=== PATIENT | male | born 2000 | race Caucasian/White ===

== ENCOUNTER 2021-04-01 10:47 | Emergency (ER) | payer BC, OTHER ==
[~2021-04-01] VITALS: Ht 182 cm; Wt 94.0 kg
[2021-04-01] MEDS ORDERED: NS IV 1000 ML 1,000 ML ONE (10:56)
[2021-04-01] MEDS ORDERED: LACTATED RINGERS 1,000 ML IV STA (11:03)
[2021-04-01] MEDS ORDERED: NS IV 1000 ML 1,000 ML IV STA (11:03)
[2021-04-01] MEDS ORDERED: LACTATED RINGERS 1,000 ML IV ONE (11:05)
--- NOTE | 2021-04-01 11:25 | ED General ---
General Chief Complaint: Exposure Stated Complaint: HEAT EXPOSURE; NEAR SYNCOPE; AMS Nursing Triage Note: PT WAS A [employer] AND HAD RAN ABOUT A MILE AND HALF AND FELT SICK AND WEAK AND LIKE HE WAS GOING TO PASS OUT. HE THINKS HE WAS OVERHEATED. THE OUTSIDE TEMPERATURE IS CURRENTLY 77 DEGREES. Source of Information: Patient Exam Limitations: No Limitations History of Present Illness Date Seen by Provider: Apr 01, 2021 Time Seen by Provider: 10:58 Initial Comments Here with report of feeling weak and nearly passing out after running a mile and a half. Thinks he may be dehydrated. Complains of cramps in his legs and abdomen. Arrives sweating profusely. Reports that he is thirsty. Denies diarrhea or dysuria. No other constitutional symptoms. Timing/Duration: 1/2 Hour Severity: Moderate Associated Systoms: No Chest Pain, No Cough; Diaphoresis; No Fever/Chills; Nausea/Vomiting; No Shortness of Air; Weakness Allergies and Home Medications Allergies Coded Allergies: No Known Drug Allergies (Unverified , 04/01/21) Patient Home Medication List Home Medication List Reviewed: Yes Review of Systems Review of Systems Constitutional: No chills; diaphoresis; No fever; weakness EENTM: no symptoms reported Respiratory: no symptoms reported Cardiovascular: No chest pain; syncope (Near syncope) Gastrointestinal: no symptoms reported Genitourinary: no symptoms reported Musculoskeletal: muscle pain, muscle cramps, muscle weakness Skin: see HPI Psychiatric/Neurological: No Symptoms Reported All Other Systems Reviewed Negative Unless Noted: Yes Past Oqsfkty-Akzrcf-Hadwfd Hx Patient Social History Tobacco Use?: No Use of E-Cig and/or Vaping dev: No Substance use?: No Alcohol Use?: No Pt feels they are or have been: No Immunizations Up To Date First/Initial COVID19 Vaccinat: MARCH 26, 2021 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 oz. kg; 28.00 BMI Method: General Appearance: WD/WN, Mild Distress HEENT: PERRL/EOMI, Pharynx Normal Neck: Non Tender, Supple Respiratory: Lungs Clear, Normal Breath Sounds Cardiovascular: No Murmur, Tachycardia Gastrointestinal: Non Tender, Soft Back: Normal Inspection, No CVA Tenderness, No Vertebral Tenderness Extremity: Normal Range of Motion, Non Tender Neurologic/Psychiatric: Alert, Oriented x3, No Motor/Sensory Deficits Skin: Normal Color, Damp (Sweating) Progress/Results/Core Measures Suspected Sepsis SIRS Temperature: Pulse: 98 Respiratory Rate: 18 Laboratory Tests 04/01/21 10:56: White Blood Count 20.0H Blood Pressure 112 /59 Mean: 76 Laboratory Tests 04/01/21 10:56: Creatinine 1.91H, Platelet Count 436H, Total Bilirubin 0.6 Results/Orders Lab Results Laboratory Tests Test 04/01/21 10:56 Range/Units White Blood Count 20.0 H 4.3-11.0 10^3/uL Red Blood Count 5.04 4.35-5.85 10^6/uL Hemoglobin 15.7 13.3-17.7 G/DL Hematocrit 45 40-54 % Mean Corpuscular Volume 90 80-99 FL Mean Corpuscular Hemoglobin 31 25-34 PG Mean Corpuscular Hemoglobin Concent 35 32-36 G/DL Red Cell Distribution Width 11.8 10.0-14.5 % Platelet Count 436 H 130-400 10^3/uL Mean Platelet Volume 9.2 7.4-10.4 FL Immature Granulocyte % (Auto) 8 % Neutrophils (%) (Auto) 47 42-75 % Lymphocytes (%) (Auto) 39 12-44 % Monocytes (%) (Auto) 4 0-12 % Eosinophils (%) (Auto) 2 0-10 % Basophils (%) (Auto) 1 0-10 % Neutrophils # (Auto) 9.4 H 1.8-7.8 X 10^3 Lymphocytes # (Auto) 7.7 H 1.0-4.0 X 10^3 Monocytes # (Auto) 0.7 0.0-1.0 X 10^3 Eosinophils # (Auto) 0.4 H 0.0-0.3 10^3/uL Basophils # (Auto) 0.2 H 0.0-0.1 10^3/uL Immature Granulocyte # (Auto) 1.6 H 0.0-0.1 10^3/uL Neutrophils % (Manual) 46 % Lymphocytes % (Manual) 19 % Monocytes % (Manual) 6 % Eosinophils % (Manual) 4 % Metamyelocytes % 3 % Band Neutrophils 4 % Atypical Lymphocytes 18 % Platelet Estimate INCREASED Blood Morphology Comment NORMAL Sodium Level 139 135-145 MMOL/L Potassium Level 4.7 3.6-5.0 MMOL/L Chloride Level 101 98-107 MMOL/L Carbon Dioxide Level 11 L 21-32 MMOL/L Anion Gap 27 H 5-14 MMOL/L Blood Urea Nitrogen 18 7-18 MG/DL Creatinine 1.91 H 0.60-1.30 MG/DL Estimat Glomerular Filtration Rate 45 BUN/Creatinine Ratio 9 Glucose Level 145 H 70-105 MG/DL Calcium Level 11.2 H 8.5-10.1 MG/DL Corrected Calcium 8.5-10.1 MG/DL Total Bilirubin 0.6 0.1-1.0 MG/DL Aspartate Amino Transf (AST/SGOT) 29 5-34 U/L Alanine Aminotransferase (ALT/SGPT) 19 0-55 U/L Alkaline Phosphatase 145 H 40-136 U/L Total Protein 8.3 H 6.4-8.2 GM/DL Albumin 4.9 H 3.2-4.5 GM/DL My Orders Orders - JOHN BAKER MD Ns Iv 1000 Ml (Sodium Chloride 0.9%) (04/01/21 10:56) Cbc With Automated Diff (04/01/21 11:03) Comprehensive Metabolic Panel (04/01/21 11:03) Creatine Kinase (04/01/21 11:03) Ed Iv/Invasive Line Start (04/01/21 11:03) Ns Iv 1000 Ml (Sodium Chloride 0.9%) (04/01/21 11:03) Lactated Ringers (Lr 1000 Ml Iv Solution (04/01/21 11:03) Lactated Ringers (Lr 1000 Ml Iv Solution (04/01/21 11:05) Manual Differential (04/01/21 10:56) Vital Signs/I&O 04/01/21 10:50 Temp 35.6 Pulse 98 Resp 18 B/P (MAP) 112/59 (76) Pulse Ox 96 O2 Delivery Room Air Capillary Refill : Less Than 3 Seconds Blood Pressure Mean: 76 Progress Note : Progress Note Seen and evaluated. Normal saline 1 L bolus ordered as well as labs. We will also give additional LR 1 L bolus. Patient is drinking fluids. Monitor patient. 1203: Labs consistent with heat exhaustion. He is doing way better now. He is tolerating fluids without vomiting. His online health and fitness coach is with him. We will limit activity for the next few days and he will continue hydration at home. I did discuss the elevated creatinine. Total CK is pending and is send out. That being said, patient is in much better state right now and he will continue hydration at home. I did discuss the importance of adequate hydration prior to significant physical activity. He verbalized understanding. I also discussed that history of heat injury is highly suggestive of repeat head injury so he will take appropriate precautions. Discharged home with return precautions. Patient verbalized understanding instructions and agreement with plan. Departure Impression Primary Impression: Heat exhaustion due to water depletion Qualified Codes: T67.3XXA - Heat exhaustion, anhydrotic, initial encounter Disposition: HOME, SELF-CARE Condition: Improved Departure-Patient Inst. Decision time for Depature: 12:05 Patient Instructions: Heat Exhaustion and Heat Stroke (DC) Add. Discharge Instructions: All discharge instructions reviewed with patient and/or family. Voiced understanding. It is very important that you maintain adequate hydration especially prior to significant physical activity. You may drink electrolyte-containing compounds such as Gatorade but water that down some. Should monitor urination and your urine should be light yellow or slightly mortgage loan computation clerk to ensure adequate hydration. Eat a light diet today and then return to normal diet after as tolerated. No strenuous activity for the next 2 days and you may return to normal activity as tolerated. Return for decreased urination, vomiting, weakness, breathing problems or other concerns as needed. Follow-up with your school sports trainer. Remember that history of heat injury is a significant risk factor for another heat injury. JOHN BAKER MD Apr 01, 2021 11:25
[2021-04-01 11:45] LABS: HEMATOCRIT 45 % (40-54); HEMOGLOBIN 15.7 G/DL (13.3-17.7); MEAN CORPUSCULAR HEMOGLOBIN 31 PG (25-34); MEAN CORPUSCULAR HGB CONC 35 G/DL (32-36); MEAN CORPUSCULAR VOLUME 90 FL (80-99)
[2021-04-01 11:46] LABS: BASOPHILS # (AUTO) 0.2 10^3/uL (0.0-0.1); BASOPHILS % (AUTO) 1 % (0-10); EOSINOPHILS # (AUTO) 0.4 10^3/uL (0.0-0.3); EOSINOPHILS % (AUTO) 2 % (0-10); LYMPHOCYTES # (AUTO) 7.7 X 10^3 (1.0-4.0); LYMPHOCYTES % (AUTO) 39 % (12-44); MEAN PLATELET VOLUME 9.2 FL (7.4-10.4); MONOCYTES # (AUTO) 0.7 X 10^3 (0.0-1.0); MONOCYTES % (AUTO) 4 % (0-12); NEUTROPHILS # (AUTO) 9.4 X 10^3 (1.8-7.8); NEUTROPHILS % (AUTO) 47 % (42-75); PLATELET COUNT 436 10^3/uL (130-400)
[2021-04-01 11:48] LABS: ATYPICAL LYMPHOCYTES 18 %; BAND NEUTROPHILS 4 %; EOSINOPHILS % (MANUAL) 4 %; LYMPHOCYTES % (MANUAL) 19 %; METAMYELOCYTES % 3 %; MONOCYTES % (MANUAL) 6 %; NEUTROPHILS % (MANUAL) 46 %
[2021-04-01 11:49] LABS: PLATELET ESTIMATE INCREASED; RBC MORPH NORMAL
[2021-04-01 11:52] LABS: CHLORIDE 101 MMOL/L (98-107); POTASSIUM 4.7 MMOL/L (3.6-5.0); SODIUM 139 MMOL/L (135-145)
[2021-04-01 11:53] LABS: ALANINE AMINOTRANSFERASE 19 U/L (0-55); ALBUMIN 4.9 GM/DL (3.2-4.5); ALKALINE PHOSPHATASE 145 U/L (40-136); BILIRUBIN,TOTAL 0.6 MG/DL (0.1-1.0); BUN/CREATININE RATIO 9; CALCIUM 11.2 MG/DL (8.5-10.1); CARBON DIOXIDE 11 MMOL/L (21-32); CREATININE SERUM 1.91 MG/DL (0.60-1.30); GFR ESTIMATED 45; GLUCOSE 145 MG/DL (70-105); TOTAL PROTEIN 8.3 GM/DL (6.4-8.2)
[2021-04-01 12:12] VITALS: BP 126/72
[2021-04-01 14:59] LABS: CREATINE KINASE 239 U/L (30-200)
--- OUTSIDE RECORDS SUMMARY | 2021-04-04 09:07 | XMS REPORT | Clinical Summary ---
Author Author [facility] Organization [facility] Address Unknown Phone Unavailable Care Team Providers Care Barrel Assembler Name Role Phone Najma Wheeler MD PCP Allergies No Known Active Allergies Medications No known medications Active Problems Problem Noted Date Rhabdomyolysis 04/02/2021 Last Assessment & Plan: Formatting of this note might be differ ent from the original. With associated elevated LFT's and DERICK. Exercise induced, non-traumatic. Denies creatine supplements or drug use. Plan: - Aggressive IVF support - Monitor UOP, lytes, renal function an d LFT's - Monitor on tele - May need bicarbonate IV Elevated LFTs 04/02/2021 Last Assessment & Plan: Formatting of this note might be differ ent from the original. Trend lft's IVF support Syncope and collapse 04/02/2021 Last Assessment & Plan: Formatting of this note might be differ ent from the original. Occurred with exercise. Unclear etiology. Need to r/o HOCM and Myocarditis associ ated with Covid vaccination. (1st dose of Moderna was 03/22/21). Plan: - echo in a.m. - cardiology consult - serial troponin, monitor on Tele - IVF support Resolved Problems Problem Noted Date Resolved Date DERICK (acute kidney injury) 04/02/2021 04/04/2021 Last Assessment & Plan: Formatting of this note might be differ ent from the original. Secondary to rhabdomyolysis - monitor uop - renal u/s in a.m. - IVF support Encounters Care Team Description Date Type Specialty Danni Krishnamurthy RN Syncope, unspecified syncope type (Prima ry Dx) 04/04/2021 Orders Only Cardiology Hospitalist, Physician Annie Renee MD 04/02/2021 Hospital Encounter from Last 3 Months Family History Medical History Relation Name Comments Heart attack Father PCI X 1 stent Hyperlipidemia Father Hypertension Father Relation Name Status Comments Father Alive Mother Alive Social History Date Tobacco Use Types Packs/Day Years Used Never Smoker Smokeless Tobacco: Never Used Comments Alcohol Use Standard Drinks/Week Never 0 (1 standard drink = 0.6 o z pure alcohol) Alcohol Habits Answer Date Recorded How often do you have a drink containing alcohol? Never 04/02/2021 How many drinks containing alcohol do you have on No t asked a typical day when you are drinking? How often do you have six or more drinks on one Not asked occasion? Sex Assigned at Date Recorded Not on file Last Filed Vital Signs Reading Time Taken Comments Vital Sign 121/71 04/04/2021 7:48 AM CDT Blood Pressure 65 04/04/2021 7:48 AM CDT Pulse 37.1 C (98.7 F) 04/04/2021 7:45 AM CDT Temperature 18 04/04/2021 7:45 AM CDT Respiratory Rate 99% 04/04/2021 7:45 AM CDT Oxygen Saturation - - Inhaled Oxygen Concentration 99.7 kg (219 lb 12.8 oz) 04/04/2021 6:05 AM CDT Weight 182.9 cm (6') 04/02/2021 8:53 PM CDT Height 29.81 04/02/2021 8:53 PM CDT Body Mass Index Plan of Treatment Health Maintenance Due Date Last Done Comments Td/Tdap# 2000 Pneumococcal Vaccine: 2007 03/01/2002, Pediatrics (0 to 5 Years) 2001, and At-Risk Patients (6 2001, to 64 Years) (1 of 4 - Additional PCV13) history exists HPV Vaccine (1 - Male 02/12/2012 2-dose series) COVID-19 Vaccine (2 - 04/19/2021 03/22/2021 Moderna 2-dose series) Influenza Vaccine (#1) 2021 MCV4 Vaccine Aged Out No longer eligible based on patient's age to complete this topic Procedures * The patient is currently admitted. The information in this section might not be complete until the patient is discharged. Comments Procedure Name Priority Date/Time Associated Diag nosis C-REACTIVE PROTEIN Routine 04/04/2021 4:10 AM CDT CREATINE KINASE Routine 04/04/2021 4:10 AM CDT COMPREHENSIVE METABOLIC Routine 04/04/2021 PANEL 4:10 AM CDT COMPLETE BLOOD COUNT Routine 04/04/2021 4:10 AM CDT US RENAL Routine 04/03/2021 4:58 PM CDT ECHO COMPLETE W DOPPLER Routine 04/03/2021 AND COLOR FLOW 2:36 PM CDT ECG Routine 04/03/2021 9:02 AM CDT MAGNESIUM Routine 04/03/2021 4:13 AM CDT COMPREHENSIVE METABOLIC Routine 04/03/2021 PANEL 4:13 AM CDT TROPONIN Timed 04/03/2021 4:13 AM CDT URINALYSIS MICROSCOPIC Routine 04/02/2021 ONLY 11:42 PM CDT URINALYSIS REFLEX Routine 04/02/2021 11:42 PM CDT TROPONIN Timed 04/02/2021 11:42 PM CDT COVID PCR - RAPID Routine 04/02/2021 10:02 PM CDT CREATINE KINASE Routine 04/02/2021 9:31 PM CDT PROTIME/INR - COMMUNITY Routine 04/02/2021 HOSPITALS 9:31 PM CDT TROPONIN STAT 04/02/2021 9:31 PM CDT MAGNESIUM Routine 04/02/2021 9:31 PM CDT COMPREHENSIVE METABOLIC Routine 04/02/2021 PANEL 9:31 PM CDT CBC AND DIFF (MANUAL DIFF Routine 04/02/2021 IF NECESSARY) 9:31 PM CDT from Last 3 Months Results * Creatine Kinase (04/04/2021 4:10 AM CDT) Only the most recent of 2 results within the time period is included. Pathologist [facility] Creatine Kinase 1,221 IU/L [facility] Comment: Hospital Lab White Female: 30 - 160 IU/L Black Female: 30 - 430 IU/L White Male: 40 - 425 IU/L Black Male: 50 - 850 IU/L Specimen Blood Performing Organization Address City/[facility] P shanika Number [address] [address] LABORATORIES [facility] [address] [place] [address] * C-Reactive Protein (04/04/2021 4:10 AM CDT) [facility] C Reactive 21.0 (H)Comment: Infection or 0.0 - 10.0 mg/L [facility] Protein Inflammation >10.0 mg/L Hospital Lab Specimen Blood Performing Organization Address City/[facility] P shanika Number [address] [address] LABORATORIES [facility] [address] [place] [address] * Comprehensive Metabolic Panel - CH (04/04/2021 4:10 AM CDT) Only the most recent of 3 results within the time period is included. Pathologist [facility] Sodium 143 133 - 147 mmol/L [facility] Potassium 4.1 3.5 - 5.5 mmol/L [facility] Chloride 113 (H) 98 - 110 mmol/L [facility] Carbon Dioxide 26 20 - 32 mmol/L [facility] Anion Gap 4 (L) 5 - 17 [facility] Calcium 9.5 8.4 - 10.5 mg/dL [facility] Glucose 119 (H) 65 - 99 mg/dL [facility] Protein Total 5.9 (L) 6.0 - 8.3 g/dL [facility] Serum [facility] at [facility] Albumin 3.3 (L) 3.5 - 5.0 g/dL [facility] Alkaline 96 38 - 126 u/L [facility] Phosphatase [facility] Alanine 420 (H) 11 - 58 u/L [facility] at [facility] Aspartate 126 (H) 17 - 59 u/L [facility] at [facility] Bilirubin Total 0.7 0.1 - 1.2 mg/dL [facility] Blood Urea 15 8 - 26 mg/dL [facility] Creatinine 1.6 (H) 0.8 - 1.5 mg/dL [facility] eGFR Male AA 67 60 - 200 [facility] mL/min/1.73sq [facility] at [facility] eGFR Male 55 (L) 60 - 200 [facility] Non-AA mL/min/1.73sq [facility] at [facility] Specimen Blood Performing Organization Address City/[facility]/ZIP [facility] P shanika Number [facility] [address] [facility] [address] HOSPITAL LAB - [facility] [address] [place], [place] [address] [place] [address] * Complete Blood Count - (04/04/2021 4:10 AM CDT) WBC 7.20 4.00 - 11.00 TH/uL [facility] at [facility] RBC 3.91 (L) 4.31 - 5.84 MIL/uL [facility] Hemoglobin 12.1 (L) 13.0 - 17.0 g/dL [facility] Hematocrit 35 (L) 40 - 50 % [facility] MCV 89 80.0 - 99.0 fL [facility] MCH 31 27.0 - 34.0 pg [facility] MCHC 35 32 - 36 % [facility] RDW 11.8 11.5 - 14.5 % [facility] Platelet Count 224 140 - 400 TH/uL [facility] MPV 8.3 (L) 9.4 - 12.3 fL [facility] Specimen Blood Performing Organization Address [facility]/ZIP [facility] P shanika Number [facility] [address] [facility] [address] [address] HOSPITAL LAB - [facility] at [address] [place] [address] [facility] * US Renal complete (04/03/2021 4:58 PM CDT) Specimen Impressions Performed At . Normal renal sonogram with screening pulsed Dopp ler. WHITE Narrative Performed At Patient: JEANINEWill DAMIEN WHITE Sex#: M #: [id number] Carmen# : [id number] Location: [facility] 07-01 Ordering Provider: FLORENCIA FONSECA Procedure Requested: [id number] US RENAL COMPLETE Exam Ordered: 04/03/2021 030 0 Exam Date/Time: 04/03/2021 1658 Begin exam date/time: 04/03/2021 1548 EXAM: US RENAL COMPLETE. INDICATION: Acute kidney insufficiency. Increased creatinine. Decreased GFR. Hematuria. Elevated white blood ce ll count.. COMPARISON: None. TECHNIQUE: Longitudinal and transverse images of the kidneys are patent with pulsed Doppler color and spectral tracings. FINDINGS: Right kidney measures 13.6 cm. Left kid tiffany measures 13.9 cm. Normal echogenicity without focal mass or calc ification. No hydronephrosis. Other: Bladder volume is 143 cc. No breann e fluid. Spleen measures 13 cm and is normal echogenicity and contour. Doppler/vascular findings: * Aorta/IVC: Aorta, 1.9 cm and IVC ar e normal course, caliber and echogenicity. * Renal: Flow throughout both kidneys seen with patent renal arteries and veins. * Bilateral ureteral jets are seen. Procedure Note Interface, Rad Results In - 04/03/2021 5:22 PM CDT Patient: DAMIEN VÁZQUEZ Sex#: Steven #: [id number] Carmen#: [id number] Location: [facility] 07-01 Ordering Provider: FLORENCIA FONSECA Procedure Requested: [id number] US RENAL COMPLETE Exam Ordered: 04/03/2021 0300 Exam Date/Time: 04/03/20211657 Begin exam date/time: 04/03/2021 1548 EXAM: US RENAL COMPLETE. INDICATION: Acute kidney insufficiency. Increased creatinine. Decreased GFR. Hematuria. Elevated white blood cell count.. COMPARISON: None. TECHNIQUE: Longitudinal and transverse images of the kidneys are patent with pulsed Doppler color and spectral tracings. FINDINGS: Right kidney measures 13.6 cm. Left kidney measures 13.9 cm. Normal echogenicity without focal mass or calcification. No hydronephrosis. Other: Bladder volume is 143 cc. No free fluid. Spleen measures 13 cm and is normal echogenicity and contour. Doppler/vascular findings: * Aorta/IVC: Aorta, 1.9 cm and IVC are normal course, caliber and echogenicity. * Renal: Flow throughout both kidneys seen with patent renal arteries and veins. * Bilateral ureteral jets are seen. IMPRESSION 1. Normal renal sonogram with screening pulsed Doppler. Performing Organization Address City/State/ZIP Code P shanika Number [facility] * Echo Complete with Doppler and Color Flow (04/03/2021 2:36 PM CDT) Ejection 60 % [facility] Fraction Specimen Impressions Performed At 1. Normal left ventricular systolic function, with an estimated ejection PROSOLV fraction of 60%. 2. Normal right ventricular size and systolic function. 3. No significant valvular abnormalit ies. 4. The origins of the right and left coronary arteries are suboptimally visualized. Torrie Son M.D. (Electronically Signed) Final Date: 03 April 2021 15:13 Narrative Performed At [facility] ECHOCARDIOGRAM REPORT [facility] Name: DAMIEN VÁZQUEZ Date: 04/03/2021 14:06 Chart #: [id number] : 2000 Location: [facility] Sono: juliin Age: 21 Gender: M Referring: FLORENCIA FOSNECA MD Room #: IP-11 Fellow: Indication:syncope Procedure: ECHO COMPLETE W DOPPLER AN D COLOR FLOW BP: 117 / 58 HR: 55 Ht: 72 Wt: 211 BSA 2.2 : 2D ECHO MEASUREMENTS LV Diastolic Diameter Bas 5.1 cm LVPW Diastolic Thickness 0.9 cm LV Systolic Diameter Base 3.1 cm Aorta at Sinuses Diameter 3 cm LA Systolic Diameter LX 3.3 cm Ascending Aorta Diameter 2.4 cm IVS Diastolic Thickness 0.9 cm WALL SEGMENT ANALYSIS: ROUTINE LVSI : 1 %FM : 100 LAD : 1 LCX : 1 RCA : 1 FINDINGS LV Ejection Fraction: 60 Normal left ventricular systolic func tion, with an estimated ejection fraction of 60%. Normal wall thickness. Normal wall motion. Normal left ventricular dimensions. Normal right ventricular size and sys tolic function. Normal right and left atrial size. Normal diastolic function. Normal aortic valve without regurgita tion. Normal mitral valve without regurgita tion. Normal pulmonic valve without regurgi tation. Normal tricuspid valve without regurg itation. Unable to accurately estimate pulmonary artery pressure. No pericardial effusion. IVC is responsive to inspiration leana cating normal RA pressure. Normal dimensions of the ascending ao rta. No intracardiac masses or thrombi. The right and left coronary arteries are suboptimally seen. Procedure Note Interface, External Ris In - 04/03/2021 3:13 PM CDT ECHOCARDIOGRAM REPORT [facility] Name: DAMIEN VÁZQUEZ Date: 04/03/2021 14:06 Chart #: [id number] : 2000 Location: [facility] Sono: aden Age: 21 Gender: M Referring: FLORENCIA FONSECA MD Room #: IP-11 Fellow: Indication:syncope Procedure: ECHO COMPLETE W DOPPLER AND COLOR FLOW BP: 117 / 58 HR: 55 Ht: 72 Wt: 211 BSA 2.2 : 2D ECHO MEASUREMENTS LV Diastolic Diameter Bas 5.1 cm LVPW Diastolic Thickness 0.9 cm LV Systolic Diameter Base 3.1 cm Aorta at Sinuses Diameter 3 cm LA Systolic Diameter LX 3.3 cm Ascending Aorta Diameter 2.4 cm IVS Diastolic Thickness 0.9 cm WALL SEGMENT ANALYSIS: ROUTINE LVSI : 1 %FM : 100 LAD : 1 LCX : 1 RCA : 1 FINDINGS LV Ejection Fraction: 60 Normal left ventricular systolic function, with an estimated ejection fraction of 60%. Normal wall thickness. Normal wall motion. Normal left ventricular dimensions. Normal right ventricular size and systolic function. Normal right and left atrial size. Normal diastolic function. Normal aortic valve without regurgitation. Normal mitral valve without regurgitation. Normal pulmonic valve without regurgitation. Normal tricuspid valve without regurgitation. Unable to accurately estimate pulmonary artery pressure. No pericardial effusion. IVC is responsive to inspiration indicating normal RA pressure. Normal dimensions of the ascending aorta. No intracardiac masses or thrombi. The right and left coronary arteries are suboptimally seen. IMPRESSION 1. Normal left ventricular systolic function, with an estimated ejection fraction of 60%. 2. Normal right ventricular size and systolic function. 3. No significant valvular abnormalities. 4. The origins of the right and left coronary arteries are suboptimally visualized. Torrie Son M.D. (Electronically Signed) Final Date: 03 April 2021 15:13 Performing Organization Address City/[facility] P shanika Number [facility] * Electrocardiogram without magnet (04/03/2021 9:02 AM CDT) Narrative Performed At This result has an attachment that is n ot available. Performing Organization Address City/State/[facility] Code P shanika Number [email or web address] * Troponin - 3 and 6 hr (04/03/2021 4:13 AM CDT) Only the most recent of 3 results within the time period is included. [facility] Troponin 0.00 0.00 - 0.03 ng/mL [facility] at [facility] Specimen Blood Performing Organization Address City/[facility]/ZIP Code P shanika Number [facility] [address] [address] [facility] [address] HOSPITAL LAB - [facility] at [address] [place] [address] [facility] * Magnesium - CH (04/03/2021 4:13 AM CDT) Only the most recent of 2 results within the time period is included. [facility] Magnesium 2.3 1.4 - 2.7 mg/dL [facility] Specimen Blood Performing Organization Address [facility] Code P shanika Number [address] [address] LABORATORIES [facility] [address] [place] [address] * Urinalysis Microscopic Only (04/02/2021 11:42 PM CDT) [facility] Microscopic RBC 0-5 0 - 5 /hpf [facility] Microscopic WBC 0-5 0 - 5 /hpf [facility] Epithelial Absent Absent [facility] Hyaline Cast Absent Absent [facility] Bacteria Absent Absent [facility] Specimen Clean Voided Urine Performing Organization Address City/[facility] Code P shanika Number [facility] [address] [place] [address] LABORATORIES [facility] [address] [place] [address] * Urinalysis Reflex - CH (04/02/2021 11:42 PM CDT) [facility] Appearance, Yellow [facility] Urine [facility] at [facility] Glucose Urine Negative Negative mg/dL [facility] Bilirubin Urine Negative Negative [facility] Ketones Urine Negative Negative mg/dL [facility] Specific 1.015 1.001 - 1.030 [facility] Hemoglobin Small (A) Negative [facility] at [facility] PH Urine 5.5 5.0 - 8.0 [facility] Protein Urine Negative Negative mg/dL [facility] Urobilinogen Negative Negative EU/dL [facility] Urine [facility] Nitrite Urine Negative Negative [facility] Leukocyte Negative Negative [facility] Esterase [facility] at [facility] Specimen Clean Voided Urine Performing Organization Address [facility]/ZIP Code P shanika Number [facility] [address] [facility] [address] HOSPITAL LAB - [facility] at [address] [place] [address] * COVID PCR - Rapid - CH (04/02/2021 10:02 PM CDT) [facility] SARS-CoV-2 PCR NegativeComment: This RT-PCR Negative C ommunity test has been authorized by Hospital at the [facility] under an Emergency Use Legends Authorization (EUA) for use by authorized laboratories. Specimen NASOPHARYNGEAL SWAB Performing Organization Address City/[facility] P shanika Number [facility] [address] [facility] [address] HOSPITAL LAB - [facility] at [address] * Protime/INR - CH (04/02/2021 9:31 PM CDT) [facility] INR 1.4 (H) 0.7 - 1.2 [facility] at [facility] Specimen Blood Performing Organization Address City/[facility] P shanika Number [facility] [address] [facility] [address] HOSPITAL LAB - [facility] at [address] [place] [address] Mike * CBC and Diff - CH (04/02/2021 9:31 PM CDT) Pathologist [facility] WBC 12.40 (H) 4.00 - 11.00 TH/uL [facility] at [facility] RBC 4.60 4.31 - 5.84 MIL/uL [facility] at [facility] Hemoglobin 14.2 13.0 - 17.0 g/dL [facility] at [facility] Hematocrit 41 40 - 50 % [facility] at [facility] MCV 89 80.0 - 99.0 fL [facility] at [facility] MCH 31 27.0 - 34.0 pg [facility] MCHC 35 32 - 36 % [facility] RDW 12.1 11.5 - 14.5 % [facility] at [facility] Platelet Count 253 140 - 400 TH/uL [facility] at [facility] MPV 8.6 (L) 9.4 - 12.3 fL [facility] at [facility] %Lymphocytes 12 (L) 15 - 47 % [facility] % Monocytes 6Comment: The %Monos may 0 - 12 % Commu nity include Monocytes, Hospital at Eosinophils, Basophils, Blasts Legends and other immature white cells. % Neutrophils 81 (H) 45 - 78 % [facility] # Lymphocytes 1.50 1.00 - 3.30 TH/uL [facility] at [facility] # Monocytes 0.80 0.20 - 0.90 TH/uL [facility] at [facility] # Granulocytes 10.10 (H) 1.70 - 6.80 TH/uL [facility] at [facility] Specimen Blood Performing Organization Address City/State/ZIP Code P shanika Number [facility] [address] [address] [facility] [address] HOSPITAL LAB - [facility] at [address] [place] [address] [facility] from Last 3 Months Insurance Type Payer Benefit Subscriber ID Effective Phone Address Plan / Dates Group [facility] [id number] 20 20- PREFERRED Present [employer] (Home) [place] [address] Damien Vázquez Personal/F Self [address] [place] [address] (Home) [place] [address] Advance Directives For more information, please contact: [phone] Patient Customer Service Operator Explanation Type Date Recorded Health Care Directive Date Inactivated Comments Code Status Date Activated Full Code 04/02/2021 8:52 PM
--- OUTSIDE RECORDS SUMMARY | 2021-04-04 09:07 | XMS REPORT | Encounter Summary ---
Author Author [facility] Organization [facility] Address Unknown Phone Unavailable Care Team Providers Care Glass Laminating Operator Name Role Phone Najma Wheeler MD PCP Reason for Referral * Electrophysiology (Routine) Referred By Contact Referred To Contact Status Reason Specialty Diagnoses / Procedures Isa Sweet MD [address] [facility] [address] [place] [address] [facility] Cardio Rhythm [address] [place] [address] Authorized Cardiology Diagnoses Syncope, unspecified syncope type P rocedures Cardiac Monitoring Patch (14 day) Electronically signed by Isa Sweet MD at Encounter Details Care Team Description Date Type Department Danni Krishnamurthy RN Syncope, unspecified syncope type (Prima ry Dx) 04/04/2021 Orders Only [facility] [address] [place] [address] Social History Date Tobacco Use Types Packs/Day [...] Assigned at Date Recorded Not on file documented as of this encounter Plan of Treatment Order Schedule Name Type Priority Associated Diag noses Expected: 04/04/2021, Expires: 2 Cardiac Monitoring Patch Cardiac Routine Synco pe, unspecified (14 day) Services syncope type documented as of this encounter Visit Diagnoses Diagnosis Syncope, unspecified syncope type - Temi samson documented in this encounter
--- OUTSIDE RECORDS SUMMARY | 2021-04-04 09:07 | XMS REPORT | Clinical Summary ---
Author Author [facility] Address Unknown Phone Unavailable Care Team Providers Care Button Cutting Machine Operator Name Role Phone Najma Wheeler MD PCP Source Comments Some departments are not documenting in the electronic medical record. If you d o not see the information that you expected, contact Release of Information in [facility] [place] Information Management department at [phone] for further assistan ce in locating additional records.[facility] Allergies No Known Active Allergies Medications No known medications Active Problems Not on file Surgical History Surgery Date Site/Laterality Comments HERNIA REPAIR Family History Medical History Relation Name Comments Heart problem Father Relation Name Status Comments Father Alive Mother Alive Social History Date Tobacco Use Types Packs/Day Years Used Never Smoker Smokeless Tobacco: Never Used Drinks/Week oz/Week Comments Alcohol Use Not Currently Sex Assigned at Date Recorded Male 07/30/2020 1:40 PM TIPPLE ENGINEER Last Filed Vital Signs Reading Time Taken Comments Vital Sign 128/83 09/03/2020 8:54 AM TIPPLE ENGINEER Blood Pressure 67 09/03/2020 8:54 AM TIPPLE ENGINEER Pulse 36.4 C (97.6 F) 09/03/2020 8:54 AM TIPPLE ENGINEER Temperature 16 09/03/2020 8:54 AM TIPPLE ENGINEER Respiratory Rate 100% 09/03/2020 8:54 AM TIPPLE ENGINEER Oxygen Saturation - - Inhaled Oxygen Concentration 95.3 kg (210 lb) 09/03/2020 8:54 AM TIPPLE ENGINEER Weight 182.9 cm (6') 09/03/2020 8:54 AM TIPPLE ENGINEER Height 28.48 09/03/2020 8:54 AM TIPPLE ENGINEER Body Mass Index Plan of Treatment Health Maintenance Due Date Last Done Comments HIV SCREENING 02/12/2016 DTAP/TDAP VACCINES (1 - 2019 Tdap) HEPATITIS C SCREENING 2019 PHYSICAL (COMPREHENSIVE) 2019 EXAM INFLUENZA VACCINE 05/30/2021 MENINGOCOCCAL VACCINE Aged Out 02/14/2013 No longe r eligible based on patient's age to (Oskar TAYLOR) complete this topic HPV VACCINES Completed 04/01/2018, 08/11/2017, 05/12/2017 Results Not on filefrom Last 3 Months Insurance Type Payer Benefit Subscriber ID Effective Phone Address Plan / Dates Group PPO BCBS DANY BCBS DANY [id number] 2020- PREF CARE Present BLUE AGENCY GENERIC [id number] 2020- AGENCY 2021 [phone] Damien Guevara Third Self [id number] [employer] [address] (Home) [place] [address] Liability Advance Directives Patient Director Emergency Department Explanation Type Date Recorded Advance Directive/DPOA
--- OUTSIDE RECORDS SUMMARY | 2021-04-04 09:07 | XMS REPORT | CLINICAL SUMMARY ---
Author [facility] Address [address] [place] [address] Phone Unavailable Care Team Providers Care Base Brander Name Role Phone Luz Cardona [place] Unavailable Giancarlo Taylor Unavailable *Any, Physical Therapy Unavailable Unavailable SOCIAL HISTORY Social History Observation Description Dates Observed Sex Male 2000 None recorded VITAL SIGNS BMI Body Mass Index Percentile Date Systolic Diastolic H ead Circumference Head Circumference Percentile Height Oxygen Concentration Pulse Pulse Oximeter Respiratory Rate Temperature Weight Odluay-pwy-yyesmh Percentile 28.48 kg/m2 Unknown 20210319 122 mmHg 75 mmHg Unknown Unknown 72 [ in_i] Unknown 56 /min 97 % 16 /min 97.9 210 [lb_av] Unknown ALLERGIES AND ADVERSE REACTIONS No known allergies MEDICATIONS No medication information recorded PROBLEM LIST Names Dates Status Other injury of other muscle(s) and tend on(s) at lower leg level, right leg, initial encounter 20210319 active Other injury of other muscle(s) and tend on(s) at lower leg level, left leg, initial encounter 20210319 active FAMILY HISTORY ENCOUNTERS Encounter Performer Location E/M Code E/M Label Date [facility] [address] or other outpatient visit (detailed) 20210319 Othe r injury of other muscle(s) and tendon(s) at lower leg level, right leg, initial encounter visit Luz Cardona [employer] [address] [address] Office or other outpatient visit (detailed) 20210319 Othe r injury of other muscle(s) and tendon(s) at lower leg level, left leg, initial encounter LAB RESULTS Overall Code Overall Text [Code] Res ult Type (Code) Result Text Result Value Relevant Re ference Range Date Lab Name [facility] Zip Code None recorded None recorded None recorde d None recorded None recorded None recorded None recorded None recorded None recorded None recorded None recorded None recorded INSURANCE PROVIDERS (PAYERS) Payer name Policy type / Coverag e type Policy ID Covered green party ID Insurance type Policy Bales [place]: [employer] [facility] BLUE SELECT (PPO) Unknown [id number] PRIMARY RENETTA VÁZQUEZ IMMUNIZATIONS Vaccine Notes Date Status None recorded None recorded None recorde d None recorded PROCEDURE NOTE Date Name Status Summary Text (Notes) 20210319 Splints/Casts Completed S plint/cast not applied. Reason: Splint/cast not needed Site: To an unspecified extremity. None recorded None recorded None recorded None recorded None recorded None recorded None recorded None recorded PROCEDURES Date Name Status Summary Text (Notes) 20210319 Splints/Casts Completed S plint/cast not applied. Reason: Splint/cast not needed Site: To an unspecified extremity. None recorded None recorded None recorded None recorded None recorded None recorded None recorded None recorded REASON FOR REFERRAL First Name Last Name NPI# Reason Physical Therapy *Any LABORATORY REPORT NARRATIVE NOTE No information recorded PATHOLOGY REPORT NARRATIVE NOTE No information recorded CONSULTATION NOTE First Name Last Name NPI# Reason Physical Therapy *Any IMAGING NARRATIVE Result Code Result Text Date Status Urgency Interpretation None None None None None None DISCHARGE SUMMARY NOTE * Allergies: No known allergies * Medication Current: No medication information recorded * Plan of Care (advice, pending tests, pending diagnostic tests): Treatment Type Code Text Date Observation Data Instruction [id number] Patient Education 2021-03-19 Apply ice to injured ar ea for 20 minutes every hour while awake. Never apply ice pack directly against the skin to avoid frostbite. You may use a towel, washcloth, elastic bandage, or layer of clothing to separate the ice pack from the skin. * Visit Diagnosis: Other injury of other muscle(s) and tendon(s) at lower leg l evel, right leg, initial encounter (S86.781A) Other injury of other muscle(s) and tendon(s) at lower leg level, left leg, init ial encounter (J06.132C) * Referrals: First Name Last Name NPI# Reason Physical Therapy *Any HISTORY AND PHYSICAL NOTE * Reason for Visit: Patient Reports: Pain, lower leg [Mod. Fact.: No Change Movement, Ibuprofen W orse Weight bearing; Location: Reports Lateral, Medial, Anterior; Assoc. Sx: Den ies Laceration, Abrasion, Erythema, Swelling, Contusion, Bleeding; Free text: 21 yo male presents with bilateral lower leg anterior pain. He states that it only happens when he runs. He has been running a lot playing college baseball and st ates he normally is not a runner.; Intensity: Reports Mild to Moderate; Quality: Reports Aching; Timing: Reports Intermittent, waxes and wanes, Sudden Onset; Co ntext: Reports No known injury]; Leg pain. * Family History: * * Allergies: No known allergies * Problems: Names Dates Status Other injury of other muscle(s) and tend on(s) at lower leg level, right leg, initial encounter 20210319 active Other injury of other muscle(s) and tend on(s) at lower leg level, left leg, initial encounter 20210319 active * Vitals: BMI Body Mass Index Percentile Date Systolic Diastolic Head Circumference Head Circum ference Percentile Height Oxygen Concentration Pulse Pulse Oximeter Respiratory Rate Temperature Weight Mcqgnt-cza-vnnwvn Percentile 28.48 kg/m2 Unknown 20210319 122 mmHg 75 mmHg Unknown Unknown 72 [in_i] Unknown 56 /min 97 % 16 /min 97.9 210 [lb_av] Unknown * Review of Systems: * Constitutional* Patient Denies* Chills * Fever * GI* Patient Denies* Nausea * Vomiting * Jairon/Lymph* Patient Denies* Bruising * Musc/Skel* Patient Denies* Back pain * Patient Reports* Leg pain * Patient Denies* Myalgia * Swelling * Neurologic* Patient Denies* Numbness * Skin/Breast* Patient Denies* Redness * Exam: * General : Normal* Normal : Vital signs were noted by provider,Patient noted to have a non-toxic appearance on exam,No acute distress,Physical development normal * Cardiac : Normal* Normal : Dorsalis pedis pulse is normal,Posterior Tibial pulse is normal,Peripheral edema absent,Normal capillary refill * Musculoskeletal : Abnormal* Normal : Range of motion of knees are normal,No Swelling of the knee noted on exam,No Deformity of the knee noted on exam,Normal palpation of the knee,No swelling of lower leg is noted on exam,No deformity of lower leg is noted on exam,Homans' sign negative on exam,Range of motion of ankles are normal,No Swelling of ankle noted on exam,No Deformity of ankle noted on exam,No tenderness to palption of the ankle * Abnormal : Tenderness noted to anterior aspect of lower leg bilaterally.,Tenderness noted to medial aspect of lower leg bilaterally. * Skin, Hair, Nails : Normal* Normal : Normal skin temperature upon palpation,No erythema observed,No rashes noted,No skin abrasion present,No ecchymosis observed * Neurological : Normal* Normal : Strength/motor skills are normal,Appropriate tactile sensation * Plan of Care (advice, pending tests, pending diagnostic tests): Treatment Type Code Text Date Observation Data Instruction [id number] Patien t Education 2021-03-19 Apply ice to injured area f or 20 minutes every hour while awake. Never apply ice pack directly against the skin to avoid frostbite. You may use a towel, washcloth, elastic bandage, or layer of cloth ing to separate the ice pack from the skin. * Lab Results: Overall Code Overall Text [Code] Result Type (Code) Result Text Result Value Relevant Reference Range Date Lab Name [facility] ode None recorded None recorded None recorded None recorded None recorded None recorded None recorded None recorded None recorded None recorded None recorded None recorded * Radiology Results: Overall Code Overall Text [Code] Result Type (Code) Result Text Result Value Relevant Reference Range Date Lab Name [facility] ode None recorded None recorded None recorded None recorded None recorded None recorded None recorded None recorded None recorded None recorded None recorded None recorded * Visit Diagnosis: Other injury of other muscle(s) and tendon(s) at lower leg level, right leg, initial encounter (S86.891A) Other injury of other muscle(s) and tendon(s) at lower leg level, left leg, init ial encounter (S86.892A) * Referrals: First Name Last Name NPI# Reason Physical Therapy *Any PLAN OF TREATMENT Treatment Type Code Text Date Instruction Data Instruction [id number] Kane gimenez Education 2021-03-19 Apply ice to injured area for 20 minutes every hour while awake. Never apply ice pack directly against the skin to avoid frostbite. You may use a towel, washcloth, elastic bandage, or layer of clothing to separate the ice pack from the skin. CHIEF COMPLAINT AND REASON FOR VISIT NARRATIVE Patient Reports: Pain, lower leg [Mod. Fact.: No Change Movement, Ibuprofen Worse Weight bearing; Location: Reports Lateral, Medial, Anterior; Assoc. Sx: Denies Laceration, Abrasion, Erythema, Swelling, Contusion, Bleeding; Free text: 21 yo male presents with bilateral lower leg anterior pain. He states that it only happens when he runs. He has been running a lot playing college baseball and states he normally is not a runner.; Intensity: Reports Mild to Moderate; Quality: Reports Aching; Timing: Reports Intermittent, waxes and wanes, Sudden Onset; Context: Reports No known injury]; Leg pain.
--- OUTSIDE RECORDS SUMMARY | 2021-04-04 09:07 | XMS REPORT | Encounter Summary ---
Author Author [facility] Organization [facility] Address Unknown Phone Unavailable Care Team Providers Care Chinese Instructor Name Role Phone Najma Wheeler MD PCP Reason for Visit * Reason Comments Loss of Consciousness * Auth/Cert Referred By Contact Referred To Contact Status Reason Specialty Diagnoses / Procedures Diagnoses Rhabdomyolysis Encounter Details Care Team Description Date Type Department Hospitalist, Physician Annie Renee MD [address] [place] [address] [phone] 04/02/2021 [facility] it Encounter Hospital - [facility] [address] [place] [address] Social History Date Tobacco Use Types Packs/Day [...] on file documented as of this encounter Last Filed Vital Signs Reading Time Taken [...] 04/02/2021 8:53 PM CDT Body Mass Index documented in this encounter Progress Notes * Miryam Cassidy NP - 04/03/2021 12:18 PM CDT Images from the original note were not included. [facility] Hospitalist - Progress Note Patient Name: Damien Vázquez Account No: [id number] Date of : 2000 Date of Admission: 04/02/2021 8:16 PM Subjective Follow up regarding DERICK, rhabdo, syncope, elevated LFT's Reports sore legs today but he reports could be from running this week. No furth er co today. Denies creatine supplements or illicit drug use. Awaiting echocardiogram and CV consult today. Continue IV fluids. Monitor renal function. Review of Systems Musculoskeletal: Positive for myalgias. All other systems reviewed and are negative. Objective Vital Signs: Temp: 36.9 C (98.5 F) Pulse: 88 Resp: 16 BP: 117/58 SpO2: 99 % Height: 182.9 cm (6') Weight: 95.8 kg (211 lb 4.8 oz) I/O last 24 Hours: In: 1300 [P.O.:1300] Out: 2500 [Urine:2500] Physical Exam Vitals and nursing note reviewed. Constitutional: General: He is not in acute distress. Appearance: Normal appearance. HENT: Head: Normocephalic and atraumatic. Nose: Nose normal. Mouth/Throat: Mouth: Mucous membranes are moist. Pharynx: Oropharynx is clear. No oropharyngeal exudate. Eyes: Pupils: Pupils are equal, round, and reactive to light. Cardiovascular: Rate and Rhythm: Normal rate and regular rhythm. Heart sounds: No murmur heard. Pulmonary: Effort: Pulmonary effort is normal. Breath sounds: Normal breath sounds. No wheezing. Abdominal: General: Abdomen is flat. Bowel sounds are normal. Tenderness: There is no abdominal tenderness. There is no guarding. Musculoskeletal: Right lower leg: No edema. Left lower leg: No edema. Skin: General: Skin is warm and dry. Capillary Refill: Capillary refill takes less than 2 seconds. Neurological: General: No focal deficit present. Mental Status: He is alert and oriented to person, place, and time. Psychiatric: Mood and Affect: Mood normal. Behavior: Behavior normal. I have personally reviewed the patient's vital signs, laboratory/pathology/cultu re results (as indicated), imaging studies (results were not discussed with the performing provider), telemetry, diagnostic tests/studies (results were not disc ussed with the performing provider), current inpatient medications and support s taff notes with pertainent findings noted within the assessment/plan. I have per sonally spoken with the patient, another physican and nursing staff regarding th is patient's case. Assessment/Plan Mr. Damien Vázquez is a 21 y.o. male who was admitted on 04/02/2021 with complaint o f Loss of Consciousness. Problems addressed with today's visit include: * Syncope and collapse Occurred with exercise. Unclear etiology. Need to r/o HOCM and Myocarditis associated with Covid vaccination. (1st dose o f Moderna was 03/22/21). Plan: - echo in a.m. - cardiology consult - serial troponin, monitor on Tele - IVF support Rhabdomyolysis With associated elevated LFT's and DERICK. Exercise induced, non-traumatic. Denies creatine supplements or drug use. Plan: - Aggressive IVF support - Monitor UOP, lytes, renal function and LFT's - Monitor on tele - May need bicarbonate IV DERICK (acute kidney injury) (HCC) Secondary to rhabdomyolysis - monitor uop - renal u/s in a.m. - IVF support Elevated LFTs Trend lft's IVF support See my orders for additional details regarding this patients treatment plan. Expected Discharge Date The patient's predicted discharge date is 04/04/2021, but this doesn't guarantee a discharge on this date. Anticipated Discharge Destination The patient's anticipated discharge destination is Home Self Care. Room: IP 11/IP 07-01 Diet: Diet-Regular VTE Prevention: Appropriate VTE chemical treatment ordered. Appropriate VTE mec hanical treatment ordered. Code Status: Full Code Redman Catheter: N/A Scheduled Meds: heparin (porcine) 5,000 Units Subcutaneous Q12H ELIDA Continuous Infusions: sodium chloride 0.9 % 150 mL/hr (04/03/21 0938) PRN Meds: acetaminophen OR acetaminophen, bisacodyL, docusate sodium, nitroglycerin, o ndansetron OR ondansetron, prochlorperazine OR prochlorperazine, prometh azine Miryam Cassidy NP [facility] Medicine Division . documented in this encounter Nursing Notes * Bradley Rob RN - 04/03/2021 2:51 AM CDT Cardiology consult sent to Dr. Rhodes at this time. Also sent to cardiology email salon assistant. documented in this encounter Miscellaneous Notes * End of Shift Note - Trudi Bell RN - 04/04/2021 6:59 AM CDT End of Shift Summary and Plan of Care Patient resting in bed. Patient had a good night, improvement in labs noted from previous day. Pt reports feeling better. Plan for discharge today. Goals per Patient Condition Fall Prevention Plan Patient will remain free from injury related to falls. See the Daily cares/safety flowsheet for intervention documentation. Goals/Plan for Shift Patient/Family stated goal for shift: Rest, go home tomorrow. Nursing goal for shift: Hemodynamically stable Plan: Monitor VS, labs, I&O Goals/Plan for Hospital Stay Patient/Family stated goal for hospital stay: To get back to normal. Nursing goal for hospital stay: Hemodynamically stable Plan: Monitor labs and VS. * End of Shift Note - Eliane Bejarano RN - 04/03/2021 6:56 PM CDT End of Shift Summary and Plan of Care Afebrile, Vitals stable t/o shift. No nausea reported, no emesis noted. Pt repor ts feeling "better" today. Still c/o generalized weakness that is now "improving ". Echo was done today as ordered, EF found to be 60%, see flowsheet. Cardiologi st was consulted and saw pt via telebot as well, see their notes for their asses sment and plan. Mother Kenyatta was present during consultation. U/S renal was don e today as well per order, no abnormality noted. Both TRANSPLANT CASE MANAGER and MD visited with pt, new orders for repeat lab work in the morning and possibly plan to d/c home bhakti orrow if continues to improve. Pt and parent agreeable with plan of care. Pt cur rently having dinner with both parents in room , food brought by family. IVF inf using, strict intake and output ongoing, pt stable and progressing towards goal of POC. Will cont to monitor. Goals per Patient Condition Fall Prevention Plan Patient will remain free from injury related to falls. See the Daily cares/safety flowsheet for intervention documentation. Goals/Plan for Shift Patient/Family stated goal for shift: "get better" Nursing goal for shift: maintain stable VS and labs, maintain good and adequate Intake and Output, No nausea/vomiting, Get ordered tests to be done today, pt to report feeling better by end of shift Plan: monitor VS and labs, monitor intake and output, Hydrate pt as ordered, mon itor n/v, provide meds as ordered, work with team to get ordered tests done, pro vide restful environment Goals/Plan for Hospital Stay Patient/Family stated goal for hospital stay: To get back to normal. Nursing goal for hospital stay: Hemodynamically stable Plan: Monitor labs and VS. * Virtual Progress Note - Annie Renee MD - 04/03/2021 9:09 AM CDT Images from the original note were not included. [facility] Hospitalist - Virtual Progress Note Patient Name: Damien Vázquez Account No: [id number] Date of : 2000 Date of Admission: 04/02/2021 8:16 PM The patient Damien Vázquez, located at [facility] was seen, examined, and evaluated via [employer] audio/video equipment. e provider documenting this encounter was Annie Renee MD who performed this se rvice while located at the providers personal residence. Subjective Follow up regarding Syncope/ARF/Acute rhabdomyolysis. Seen and examined this morning. No acute overnight events. Denied chest pain, dizziness of shortness of breath. ROS Constiution: negative All other systems negative. Objective Vital Signs: Temp: 36.9 C (98.5 F) Pulse: 64 Resp: 16 BP: 117/58 SpO2: 96 % Height: 182.9 cm (6') Weight: 95.8 kg (211 lb 4.8 oz) I/O last 24 Hours: In: 1000 [P.O.:1000] Out: 1700 [Urine:1700] Physical Exam Gen: Calm, cooperative, and in no distress HEENT: Head: Normal, normocephalic, atraumatic. Eye: Normal external eye, conjun ctiva, eye lids, and cornea. Neck: Supple CV: Regular rate and rhythm, No murmurs, gallops, or rubs Resp: Clear to auscultation, Breath sounds are equal and symmetric Abd: Soft, Non-tender, Non-distended, Normal bowel sounds Ext: No clubbing, cyanosis, or edema Skin: No obvious rashes or significant lesions Neuro: Alert, Oriented to person, place, date, and situation, No focal neurolog ic deficits noted I have personally reviewed the patient's vital signs, laboratory/pathology/cultu re results (as indicated), current inpatient medications and direct support staff member notes with pertainent findings noted within the assessment/plan. Assessment/Plan Mr. Damien Vázquez is a 21 y.o. male who was admitted on 04/02/2021 with Loss of Con sciousness. Problems addressed with today's visit include: * Syncope and collapse Occurred with exercise. Unclear etiology. No h/o Sudden cardiac in family. Differentials include Dehydration, HOCM, myocarditis ( Recent Moderna Vaccine ) Telemetry monitoring. EKG unremarkable. F/u on ECHO. Check CRP Cardiology Consult. Rhabdomyolysis Likely exercise induced, non-traumatic. CK > 2000 -->1289 Continue IVF hydration F/u on LFTs and CK. Monitor Creatinine. Monitor electrolytes, may need to switch to bicarb DERICK (acute kidney injury) (HCC) Secondary to rhabdomyolysis Continue IVF hydration. Cr. 2.4 --> 1.9 F/u on Renal US Elevated LFTs Secondary to Acute rhabdo. Monitor LFTs. See my orders for additional details regarding this patients treatment plan. Room: 11/ 07-01 Diet: Diet-Regular VTE Prevention: Appropriate VTE chemical treatment ordered. Appropriate VTE mec hanical treatment ordered. Code Status: Full Code Redman Catheter: N/A Scheduled Meds: heparin (porcine) 5,000 Units Subcutaneous Q12H ELIDA Continuous Infusions: sodium chloride 0.9 % 150 mL/hr (04/02/212128) PRN Meds: acetaminophen OR acetaminophen, bisacodyL, docusate sodium, nitroglycerin, o ndansetron OR ondansetron, prochlorperazine OR prochlorperazine, prometh azine Annie Renee MD [facility] Medicine Division . * Virtual Consult Note - Isa Sweet MD - 04/03/2021 9:05 AM CDT Images from the original note were not included. [facility] Card[facility] Telemedicine Consult I am seeing Damien Vázquez today via Telemedicine by [facility] He is located at [facility] and I am seeing the patient from [facility] office. Date: 04/03/2021 [facility]ished [facility] patient: No PCP: Najma Wheeler MD Case discussed with Requesting Physician: No Requesting Physician: hospitalist Reason for consult: syncope Note generated by: Jessica Cleaning APRN HPI: 21-year-old male patient with no prior health history. He takes no medicat ions on a regular basis. Denies alcohol, nicotine or drug use. He received on the doorknob Covid vaccine first dose March 22, 2021. 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 On April 01 he was performing a 2 mile run with the baseball team outdoors and had acute onset tunnel vision and heaviness in his legs. There was an acute loss of consciousness. No report of seizure activity at the scene. Reportedly laid to the ground by his teammates. He was taken to the emergency room in [facility]. Normal EKG and mild acute kidney injury. Patient was instructe d to hydrate rest and go home with close follow-up. He was seen in primary care physician office on April 02 who noted worsening acute kidney injury, serum CK greater than 2000 and elevated liver transaminases. Patient reported nausea, vo miting and blood-streaked emesis. Diffuse myalgias and fatigue. Presented to [facility] 04/02/2021. Echocardiogram pending. EKG with ST changes throughout. Cardiology has been consulted. Past Medical History: Diagnosis Date L5 Pars Fracture - 2019 Past Surgical History: Procedure Laterality Date HERNIORRHAPHY, INGUINAL, LAPAROSCOPIC Social History: reports that he has never smoked. He has never used smokeless tobacco. He repor ts that he does not drink alcohol and does not use drugs. Family History Problem Relation Age of Onset Heart attack Father 40 PCI X 1 stent Hypertension Father Hyperlipidemia Father Family History of Premature CAD: Yes early coronary disease with his father having a stent at age 40. However there is no family history of sudden cardiac . Review of Systems 10 points reviewed and found negative except as noted in the HPI, or below: Review of Systems All other systems reviewed and are negative. No Known Allergies Medications-Current: heparin (porcine) 5,000 Units Subcutaneous Q12H ELIDA sodium chloride 0.9 % 150 mL/hr (04/02/212128) LABS & IMAGING: No results found. Most Recent Result within the last 7 days Lab Units 04/02/212130 WBC TH/uL 12.40* HEMOGLOBIN g/dL 14.2 HEMATOCRIT % 41 PLATELET COUNT TH/uL 253 INR 1.4* Recent Labs 04/02/21213004/03/21412 NA 141 139 CL 107 109 CO2 26 24 BUN 19 18 CREAT 2.4* 1.9* MG 2.6 2.3 Most Recent Result within the last 7 days Lab Units 04/03/2141204/02/212130 POTASSIUM mmol/L 3.9 3.6 Most Recent Result within the last 7 days Lab Units 04/03/21 0413 04/02/21 2131 GLUCOSE mg/dL 112* 97 Most Recent Result within the last 7 days Lab Units 04/03/21 0413 04/02/21 2131 ALKALINE PHOSPHATASE u/L 96 102 PROTEIN TOTAL SERUM g/dL 6.2 7.0 ALBUMIN g/dL 3.5 3.9 ALANINE AMINOTRANSFERASE u/L 707* 694* ASPARTATE AMINOTRANSFERASE u/L 422* 492* Most Recent Result within the last 7 days Lab Units 04/03/21 0413 04/02/21 2342 04/02/21 2131 TROPONIN ng/mL 0.00 0.00 0.01 No results found for: HGBA1C, NTPROBNP Consults Echo: Date: 04/03/2021 pending PHYSICAL EXAM: Temp: [36.6 C (97.8 F)-37.3 C (99.1 F)] 36.9 C (98.5 F) Pulse: [58-68] 64 Resp: [16-18] 16 BP: (117-132)/(58-79) 117/58 Physical Exam Vitals reviewed. Constitutional: Appearance: Normal appearance. HENT: Right Ear: Tympanic membrane normal. Cardiovascular: Rate and Rhythm: Normal rate and regular rhythm. Pulmonary: Effort: Pulmonary effort is normal. No respiratory distress. Breath sounds: Normal breath sounds. Abdominal: General: Abdomen is flat. Bowel sounds are normal. Musculoskeletal: General: No swelling. Cervical back: Normal range of motion. Skin: General: Skin is warm. Neurological: General: No focal deficit present. Mental Status: He is alert. Psychiatric: Mood and Affect: Mood normal. Behavior: Behavior normal. ASSESSMENT & PLAN: Principal Problem: Syncope and collapse Active Problems: Rhabdomyolysis DERICK (acute kidney injury) (HCC) Elevated LFTs Impression/Plan: 21 y/o man, plays sports, had a syncopal episode developed rhabdo/acute renal fa ilure and and elevated LFTs, 1) Witnessed Syncope with exercise - vasovagal vs arrhythmia - echo is normal, I reviewed the images myself. 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 - compression stockings - Hydrate -Troponin negative - K+ 3.9, Mag 2.3 - IVF STAFF ATTESTATION: I, Isa Sweet MD, have seen and examined this patient. I have reviewed a nd edited the note as needed and agree with the information outlined by BONI Reaves. I have modified the above H&P to reflect my findings. I have performed an independent review of the following: EKG Telemetry Echocardiogram I have discussed the case with the following: Family Treatment goals, progress and next steps, as above, were discussed and mutually agreed upon with the patient/family. Electronically signed by Jessica Cleaning APRN, 04/03/2021 9:06 AM * End of Shift Note - Trudi Bell RN - 04/03/2021 6:52 AM CDT End of Shift Summary and Plan of Care Patient currently resting in bed. Pt was admitted last night for rhabdomyolysis. Pt is alert, ambulatory with steady independent gait. Denies PMH. Denies signif icant pain or distress. Will report to next shift. Goals/Plan for Shift Patient/Family stated goal for shift: Rest Nursing goal for shift: Hemodynamically stable Plan: Monitor VS, labs. Goals/Plan for Hospital Stay Patient/Family stated goal for hospital stay: To get back to normal. Nursing goal for hospital stay: Hemodynamically stable Plan: Monitor labs and VS. * Virtual H&P - Florencia Cruz MD - 04/02/2021 10:26 PM CDT Images from the original note were not included. [facility] Hospitalist - Virtual H&P Note Patient Name: Damien Vázquez Account No: [id number] Date of : 2000 Date of Admission: 04/02/2021 8:16 PM Primary Care Physician: Najma Wheeler MD; The patient Damien Vázquez, located at [facility] was seen, examined, and evaluated via [employer] audio/video equipment. e provider documenting this encounter was Florencia Cruz MD who performed santiago s service while located at the providers personal residence. Subjective Chief Complaint: Loss of Consciousness History of Present illness: Mr. Damien Vázquez is a 21 y.o. male who presented wit h direct admission from clinic for acute rhabdomyolysis and exercise related syn cope. Patient is a healthy 21-year-old male. He underwent Covid vaccination wi th the maternal vaccine, first dose on 03/22/2021. He is attempting to play [employer] baseball at [employer]. He takes no medications on a regu lar basis and denies any use of alcohol, illicit drugs, nicotine or performance enhancing supplements. Patient was in his usual state of health on 04/01/2021. He was performin g a 2 mile run with his baseball team outdoors when he had a acute onset of symp toms. Patient reports that he was about three quarters of the way through his r un when he developed sudden onset of tunnel vision, diaphoresis and feeling "hea vy" in his legs. He then had an acute loss of consciousness. Patient has no re collection of the events after this. There was no report of seizure activity, h ead trauma, tongue laceration, incontinence or focal neurologic changes. It boni ears that the patient was laid to the ground by his teammates at his side. The outdoor temperature during this time was approximately 80 F. Patient was take n to the emergency room in [facility] where reportedly evaluation showed a normal EKG mild acute kidney injury and normal creatinine kinase. Patient was instructed to hydrate, rest and go home with close outpatient follow-up. Today evaluation in the PCP office revealed worsening acute kidney injury, serum CK g reater than 2000 and elevated liver transaminases. Patient was directly admitte d for further evaluation and care. Patient reports over the past 24 hours he has had some nausea with vomiting incl uding blood-streaked emesis. He has had generalized malaise, diffuse myalgias a nd fatigue. He denies any chest pain, palpitations, dyspnea, chest tightness or diaphoresis. He denies any recent ill contacts. He denies any prior incidences similar to above. He does have a family history of early coronary disease with his father having a stent at age 40. However there is no family history of franco dden cardiac . He had normal childhood illnesses without any significant p rior medical history. Currently the patient is resting in bed comfortably. He denies any other focalizing complaints at this time. Of note, his mother does report that he did develop fevers, chills, myalgias and malaise associated with his first Covid vaccination dose. ROS Pertinent positives: As noted above in HPI Pertinent negatives: As noted above in HPI All other systems reviewed and are negative. Medical History Diagnosis Date L5 Pars Fracture - 2019 Surgical History Procedure Laterality Date HERNIORRHAPHY, INGUINAL, LAPAROSCOPIC Family History Problem Relation Age of Onset Heart attack Father 40 PCI X 1 stent Hypertension Father Hyperlipidemia Father Social History Tobacco Use Smoking status: Never Smoker Smokeless tobacco: Never Used Substance Use Topics Alcohol use: Never Drug use: Never Allergies No Known Allergies Prior to Admission Medications Not on File Objective Triage Vital Signs: Temp: 37.3 C (99.1 F) Pulse: 65 Resp: 18 BP: 126/75 SpO2 : 97 % Height: 182.9 cm (6') Weight: 95.8 kg (211 lb 4.8 oz) Physical Exam Gen: Alert, conversant, no apparent distress Eyes: PERRLA, EOMI bilaterally ENT: Mucous membranes dry, oropharynx clear CV: Regular rate and rhythm, no murmur appreciated Resp: Clear to auscultation bilaterally no active wheezing, rhonchi, crackles Abd: Nondistended, bowel sounds present and active Ext: No edema Skin: No acute rash or lesions Neuro: Cranial nerves grossly intact. PERRLA, EOMI. Speech is clear. Moves a ll extremities spontaneously. No focal deficits appreciated ECG ordered, but has not been completed. Will review once completed. I have personally reviewed the patient's vital signs, laboratory/pathology/cultu re results (as indicated), current inpatient medications and direct support staff member notes with pertainent findings noted within the assessment/plan. I have personally re viewed the patient's past medical, surgical, family, or social history and there were no changes reported. I have personally spoken with the patient, the patien t's family/friend and another physican regarding this patient's case. Assessment/Plan Mr. Damien Vázquez is a 21 y.o. male who was admitted on 04/02/2021 with complaint o f Loss of Consciousness. * Syncope and collapse Occurred with exercise. Unclear etiology. Need to r/o HOCM and Myocarditis associated with Covid vaccination. (1st dose o f Moderna was 03/22/21). Plan: - echo in a.m. - cardiology consult - serial troponin, monitor on Tele - IVF support Rhabdomyolysis With associated elevated LFT's and DERICK. Exercise induced, non-traumatic. Plan: Aggressive IVF support Monitor UOP, lytes, renal function and LFT's Monitor on tele May need bicarbonate IV DERICK (acute kidney injury) (HCC) Secondary to rhabdomyolysis - monitor uop - renal u/s in a.m. - IVF support Elevated LFTs Trend lft's IVF support In addition, see my orders for additional details regarding this patients treatm ent plan. Diet: Diet-Regular VTE Prevention: Appropriate VTE chemical treatment ordered. Appropriate VTE mec hanical treatment ordered. Code Status: Full Code Advanced Care Planning The patient does not have an advanced directive. The patient's Parents are his s urrogate decision maker/DPOA. Disp: Admit the patient as Inpatient to Intermediate with telemetry for treatmen t as noted above. Florencia Cruz MD [facility] Medicine [facility] . * Assessment & Plan Note - Florencia Cruz MD - 04/02/2021 10:26 PM CDT Associated Problem(s): Elevated LFTs Trend lft's IVF support * Assessment & Plan Note - Florencia Cruz MD - 04/02/2021 10:25 PM CDT Associated Problem(s): DERICK (acute kidney injury) (HCC) (Resolved 04/04/2021) Secondary to rhabdomyolysis - monitor uop - renal u/s in a.m. - IVF support * Assessment & Plan Note - Miryam Cassidy NP - 04/02/2021 10:24 PM CDT Associated Problem(s): Syncope and collapse Occurred with exercise. Unclear etiology. Need to r/o HOCM and Myocarditis associated with Covid vaccination. (1st dose o f Moderna was 03/22/21). Plan: - echo in a.m. - cardiology consult - serial troponin, monitor on Tele - IVF support * Assessment & Plan Note - Miryam Cassidy NP - 04/02/2021 10:23 PM CDT Associated Problem(s): Rhabdomyolysis With associated elevated LFT's and DERICK. Exercise induced, non-traumatic. Denies creatine supplements or drug use. Plan: - Aggressive IVF support - Monitor UOP, lytes, renal function and LFT's - Monitor on tele - May need bicarbonate IV * Hospital Course - Miryam Cassidy NP - 04/02/2021 10:20 PM CDT Mr. Damien Vázquez is a 21 y.o. male who was admitted on 04/02/2021 with complaint o f Loss of Consciousness. Patient presented with direct admission from clinic for acute rhabdomyolysis and exercise related syncope. Patient is a healthy 21-yea r-old male. He underwent Covid vaccination with the moderna vaccine, first dose on 03/22/2021. Patient was in his usual state of health on 04/01/2021. He was performing a 2 mile run with his baseball team outdoors when he had a acu te onset of symptoms. Patient reports that he was about three quarters of the w ay through his run when he developed sudden onset of tunnel vision, diaphoresis and feeling "heavy" in his legs. He then had an acute loss of consciousness. Regino escalante has no recollection of the events after this. There was no report of sei zure activity, head trauma, tongue laceration, incontinence or focal neurologic changes. It appears that the patient was laid to the ground by his teammates at his side. The outdoor temperature during this time was approximately 80 F. Patient was taken to the emergency room in [place], [place] where reportedly e valuation showed a normal EKG, mild acute kidney injury and normal creatinine ki nase. Patient was instructed to hydrate, rest and go home with close outpatient follow-up. On 04/02, evaluation in the PCP office revealed worsening acute kidney injury, serum CK greater than 2000 and elevated liver transaminases. Patient was directly admitted for further evaluation and care. Patient was admitted for further observation and evaluation. He was given aggre ssive hydration. Echocardiogram was ordered and is currently pending. Renal ul trasound was ordered and is currently pending. Electrolytes were monitored clos carey. Consultation was made with cardiology. 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 The information in this section might not be complete until the patient is discharged. Comments Procedure Name Priority Date/Time Associated Diag nosis CREATINE KINASE Routine 04/04/2021 4:10 AM CDT C-REACTIVE PROTEIN Routine 04/04/2021 4:10 AM CDT COMPREHENSIVE METABOLIC Routine 04/04/2021 PANEL 4:10 AM CDT COMPLETE BLOOD COUNT Routine 04/04/2021 4:10 AM CDT US RENAL Routine 04/03/2021 4:58 PM CDT ECHO COMPLETE W DOPPLER Routine 04/03/2021 AND COLOR FLOW 2:36 PM CDT ECG Routine 04/03/2021 9:02 AM CDT TROPONIN Timed 04/03/2021 4:13 AM CDT MAGNESIUM Routine 04/03/2021 4:13 AM CDT COMPREHENSIVE METABOLIC Routine 04/03/2021 PANEL 4:13 AM CDT URINALYSIS MICROSCOPIC Routine 04/02/2021 ONLY 11:42 PM CDT URINALYSIS REFLEX Routine 04/02/2021 11:42 PM CDT TROPONIN Timed 04/02/2021 11:42 PM CDT COVID PCR - RAPID Routine 04/02/2021 10:02 PM CDT PROTIME/INR - COMMUNITY Routine 04/02/2021 HOSPITALS 9:31 PM CDT TROPONIN STAT 04/02/2021 9:31 PM CDT MAGNESIUM Routine 04/02/2021 9:31 PM CDT CREATINE KINASE Routine 04/02/2021 9:31 PM CDT COMPREHENSIVE METABOLIC Routine 04/02/2021 PANEL 9:31 PM CDT CBC AND DIFF (MANUAL DIFF Routine 04/02/2021 IF NECESSARY) 9:31 PM CDT documented in this encounter Results * C-Reactive Protein (04/04/2021 4:10 AM CDT) C Reactive 21.0 (H)Comment: Infection or 0.0 - 10.0 mg/L [facility] Protein Inflammation >10.0 mg/L Hospital Lab Specimen Blood Performing Organization Address City/State/ZIP Code P shanika Number [address] [address] LABORATORIES [facility] [address] [place] [address] * Creatine Kinase (04/04/2021 4:10 AM CDT) Only the most recent of 2 results within the time period is included. Creatine Kinase 1,221 IU/L [facility] Comment: Hospital Lab White Female: 30 - 160 IU/L Black Female: 30 - 430 IU/L White Male: 40 - 425 IU/L Black Male: 50 - 850 IU/L Specimen Blood Performing Organization Address City/State/ZIP Code P shanika Number [facility] [address] [place] [address] LABORATORIES [facility] [address] [place] [address] * Comprehensive Metabolic Panel - [facility] (04/04/2021 4:10 AM CDT) Only the most recent of 3 results within the time period is included. Pathologist [facility] Sodium 143 133 - 147 mmol/L [facility] Potassium 4.1 3.5 - 5.5 mmol/L [facility] Chloride 113 (H) 98 - 110 mmol/L [facility] Carbon Dioxide 26 20 - 32 mmol/L [facility] Anion Gap 4 (L) 5 - 17 [facility] Calcium 9.5 8.4 - 10.5 mg/dL [facility] Glucose 119 (H) 65 - 99 mg/dL [facility] Protein Total 5.9 (L) 6.0 - 8.3 g/dL [facility] Serum [facility] Albumin 3.3 (L) 3.5 - 5.0 g/dL [facility] Alkaline 96 38 - 126 u/L [facility] Phosphatase [facility] Alanine 420 (H) 11 - 58 u/L [facility] Aspartate 126 (H) 17 - 59 u/L [facility] Bilirubin Total 0.7 0.1 - 1.2 mg/dL [facility] Blood Urea 15 8 - 26 mg/dL [facility] Nitrogen [facility] Creatinine 1.6 (H) 0.8 - 1.5 mg/dL [facility] eGFR Male AA 67 60 - 200 [facility] mL/min/1.73sq m [facility] eGFR Male 55 (L) 60 - 200 [facility] Non-AA mL/min/1.73sq m [facility] Specimen Blood Performing Organization Address City/[facility]/ZIP Code P shanika Number [facility] [id number] [address] [facility] [address] HOSPITAL LAB - [facility] [address] [place] [address] [facility] * Complete Blood Count - [facility] (04/04/2021 4:10 AM CDT) Pathologist [facility] WBC 7.20 4.00 - 11.00 TH/uL [facility] RBC 3.91 (L) 4.31 - 5.84 MIL/uL [facility] Hemoglobin 12.1 (L) 13.0 - 17.0 g/dL [facility] Hematocrit 35 (L) 40 - 50 % [facility] MCV 89 80.0 - 99.0 fL [facility] MCH 31 27.0 - 34.0 pg [facility] MCHC 35 32 - 36 % [facility] RDW 11.8 11.5 - 14.5 % [facility] Platelet Count 224 140 - 400 TH/uL [facility] MPV 8.3 (L) 9.4 - 12.[address] [facility] Specimen Blood Performing Organization Address City/State/ZIP Code P shanika Number [facility] [id number] [facility] [address] [facility] - [facility] at [address] [place] [address] [facility] * US Renal complete (04/03/2021 4:58 PM CDT) Specimen Impressions Performed At . Normal renal sonogram with screening pulsed Dopp ler. WHITE Narrative Performed At Patient: DAMIEN VÁZQUEZ Sex#: M #: [id number] Carmen# : [id number] Location: [facility] 07-01 Ordering Provider: FLORENCIA CRUZ Procedure Requested: [id number] US RENAL COMPLETE Exam Ordered: 04/03/2021 030 [...] 5:22 PM CDT Patient: DAMIEN VÁZQUEZ Sex#: M #: 2000 Carmen#: [id number] Location: [facility] 07-01 Ordering Provider: FLORENCIA CRUZ Procedure Requested: [id number] US RENAL COMPLETE Exam Ordered: 04/03/2021 0300 Exam Date/Time: 04/03/2021 1658 Begin exam date/time: [...] DAMIEN VÁZQUEZ Date: 04/03/2021 14:06 Chart #: [id number] : 2000 Location: [facility] Age: 21 Gender: M Referring: FLORENCIA CRUZ MD Room #: IP-11 Fellow: Indication:syncope Procedure: [...] DAMIEN VÁZQUEZ Date: 04/03/2021 14:06 Chart #: [id number] : 2000 [facility] Age[facility] 21 Gender: M Referring: FLORENCIA CRUZ MD Room #: IP-11 Fellow: Indication:syncope Procedure: [...] 03 April 2021 15:13 Performing Organization Address [facility] Code P shanika Number [id number] * Electrocardiogram without magnet (04/03/2021 9:02 AM CDT) Narrative Performed At This result has an attachment that is n ot available. Performing Organization Address [facility] Code P shanika Number [id number] * Magnesium - [facility] (04/03/2021 4:13 AM CDT) Only the most recent of 2 results within the time period is included. Magnesium 2.3 1.4 - 2.7 mg/dL [facility] Specimen Blood Performing Organization Address [facility]/ZIP Code P shanika Number [address] [address] LABORATORIES [facility] [address] [place] [address] * Troponin - 3 and 6 hr (04/03/2021 4:13 AM CDT) Only the most recent of 3 results within the time period is included. Troponin 0.00 0.00 - 0.03 ng/mL [facility] Specimen Blood Performing Organization Address [facility]/ZIP Code P shanika Number [facility] [id number] [address] [facility] [address] HOSPITAL LAB - [facility] at [address] [place] [address] Legends * Urinalysis Microscopic Only (04/02/2021 11:42 PM CDT) Pathologist [facility] Microscopic RBC 0-5 0 - 5 /hpf [facility] Microscopic WBC 0-5 0 - 5 /hpf [facility] Epithelial Absent Absent [facility] Lab Hyaline Cast Absent Absent [facility] Bacteria Absent Absent [facility] Specimen Clean Voided Urine Performing Organization Address City/State/ZIP Code P shanika Number [address] [address] LABORATORIES [facility] [address] [place] [address] * Urinalysis Reflex - [facility] (04/02/2021 11:42 PM CDT) Pathologist [facility] Appearance, Yellow [facility] Urine [facility] Glucose Urine Negative Negative mg/dL [facility] Bilirubin Urine Negative Negative [facility] Ketones Urine Negative Negative mg/dL [facility] Specific 1.015 1.001 - 1.030 [facility] Hemoglobin Small (A) Negative [facility] PH Urine 5.5 5.0 - 8.0 [facility] Protein Urine Negative Negative mg/dL [facility] Urobilinogen Negative Negative EU/dL [facility] Nitrite Urine Negative Negative [facility] Leukocyte Negative Negative [facility] Esterase [facility] Specimen Clean Voided Urine Performing Organization Address City/[facility]/ZIP Code P shanika Number [facility] [address] [facility] [address] [address] HOSPITAL LAB - [facility] at [address] [place] [address] [facility]ends * COVID PCR - Rapid - [facility] (04/02/2021 10:02 PM CDT) [facility] SARS-CoV-2 PCR NegativeComment: This RT-PCR Negative C ommunity test has been authorized by Hospital at the [facility] under an Emergency Use Legends Authorization (EUA) for use by authorized laboratories. Specimen NASOPHARYNGEAL SWAB Performing Organization Address City/State/ZIP Code P shanika Number [facility] [address] [facility] [address] [address] HOSPITAL LAB - [facility] at [address] [place] [address] [facility] * Protime/INR - [facility] (04/02/2021 9:31 PM CDT) Pathologist [facility] INR 1.4 (H) 0.7 - 1.2 [facility] at [facility] Specimen Blood Performing Organization Address City/[facility]/ZIP Code P shanika Number [facility] [address] [facility] [address] [address] HOSPITAL LAB - [facility] at [address] [place] [address] Legends * CBC and Diff - [facility] (04/02/2021 9:31 PM CDT) WBC 12.40 (H) 4.00 - 11.00 TH/uL [facility] at [facility] RBC 4.60 4.31 - 5.84 MIL/uL [facility] Hemoglobin 14.2 13.0 - 17.0 g/dL [facility] Hematocrit 41 40 - 50 % [facility] MCV 89 80.0 - 99.0 fL [facility] at [facility] MCH 31 27.0 - 34.0 pg [facility] MCHC 35 32 - 36 % [facility] RDW 12.1 11.5 - 14.5 % [facility] Platelet Count 253 140 - 400 TH/uL [facility] MPV 8.6 (L) 9.4 - 12.3 fL [facility] %Lymphocytes 12 (L) 15 - 47 % [facility] % Monocytes 6Comment: The %Monos may 0 - 12 % Commu nity include Monocytes, Hospital at Eosinophils, Basophils, Blasts [facility] and other immature white cells. % Neutrophils 81 (H) 45 - 78 % [facility] # Lymphocytes 1.50 1.00 - 3.30 TH/uL [facility] # Monocytes 0.80 0.20 - 0.90 TH/uL [facility] at [facility] # Granulocytes 10.10 (H) 1.70 - 6.80 TH/uL [facility] at [facility] Specimen Blood Performing Organization Address City/State/ZIP Code P shanika Number [facility] [address] [facility] [address] [address] HOSPITAL LAB - [facility] at [address] [place] [address] [facility]ends documented in this encounter Visit Diagnoses Diagnosis Syncope and collapse - Primary Rhabdomyolysis DERICK (acute kidney injury) (HCC) Elevated LFTs Other abnormal blood chemistry documented in this encounter Administered Medications Action Date Dose Rate Site Medication Order MAR Action acetaminophen (TYLENOL) suppository 650 mg 650 mg, Rectal, Every 6 hours PRN, mild pain (pain score 1-3), Starting on Wed04/02/21 at 2050, Do not exceed 4 GM/DAY of acetaminophen. If 65 or older do no t exceed 3 GM/DAY. If chronic alcoholic d o not exceed 2 GM/DAY. acetaminophen (TYLENOL) tablet 325-650 mg 325-650 mg, Oral, Every 6 hours PRN, mild pain (pain score 1-3), fever, Starting on Wed04/02/21 at 2050, Do not exceed 4 GM/DAY of acetaminophen. If 6 5 or older do not exceed 3 GM/DAY. If chronic alcoholic do not exceed 2 GM/DAY. bisacodyL (DULCOLAX) suppository 10 mg 10 mg, Rectal, Daily PRN, constipation, Starting on Wed04/02/21 at 2050 docusate sodium (COLACE) capsule 100 mg 100 mg, Oral, 2 times daily PRN, stool softening, Starting on Wed04/02/21 at 2050, Swallow capsule whole 04/03/2021 8:22 PM CDT 5,000 Units Left Low er Abdomen heparin (porcine) 5,000 unit/mL Given injection 5,000 Units 5,000 Units, Subcutaneous, Every 12 hours scheduled, First dose on Wed04/02/21 at 2114 5,000 Units Left Upper Abdomen Given 04/03/2021 7:57 AM CDT 5,000 Units Right Lower Abdomen Given 04/02/2021 9:28 PM CDT nitroglycerin (NITROSTAT) SL tablet 0.4 mg 0.4 mg, Sublingual, Every 5 min PRN, chest pain, Starting on Wed04/02/21 at 2050, For 3 doses, May repeat every 5 minutes for a total of 3 doses. Check B P prior to each dose. Discontinue use for SBP less than 90 mmHg. Notify physicia n if given. DO NOT CRUSH OR CHEW. ondansetron (ZOFRAN) injection 4 mg 4 mg, Intravenous, Every 6 hours PRN, nausea/vomiting (1st line), Starting on Wed04/02/21 at 2049, Administer if patient is unable to tolerate sublingua l formulation. ondansetron (ZOFRAN-ODT) disintegrating tablet 4 mg 4 mg, Oral, Every 6 hours PRN, nausea/vomiting (1st line), Starting on Wed04/02/21 at 2049, Do not remove from blister until needed. Peel backing off the blister, do not push tablet through . For ORAL administration, using dry hands place tablet on tongue and allow to dissolve. Swallow with saliva. Fo r NG/OG administration, dissolve tablet i n small amount of water immediately upon removal from package and administer immediately via syringe through feeding tube. prochlorperazine (COMPAZINE) injection 5-10 mg 5-10 mg, Intravenous, Every 4 hours PRN , nausea/vomiting (2nd line), Starting on Wed04/02/21 at 2050, May repeat 5 mg dos e x 1 after 30 minutes if first dose ineffective. Do not exceed a total dose of 40 mg within a 24 hour period. Rate of administration should not exceed 5 mg/minute. prochlorperazine (COMPAZINE) injection 5-10 mg 5-10 mg, Intramuscular, Every 4 hours PRN, nausea/vomiting (2nd line), Starting on Wed04/02/21 at 2050, Administer if patient does not have IV access. May repeat 5 mg dose x 1 after 60 minutes if first dose ineffective. D o not exceed a total dose of 40 mg within a 24 hour period. promethazine (PHENERGAN) suppository 25 mg 25 mg, Rectal, Every 6 hours PRN, nausea, vomiting, nausea/vomiting (4th line), Starting on Wed04/02/21 at 2050, REFRIGERATE 04/04/2021 7:45 AM CDT 150 mL/hr 150 mL/hr sodium chloride 0.9% infusion Rate/Dose 150 mL/hr, Intravenous, Continuous, Verify Starting on Wed04/02/21 at 2114, For 48 hours 150 mL/hr 150 mL/hr New Bag 04/03/2021 3:33 PM CDT 150 mL/hr 150 mL/hr New Bag 04/03/2021 9:38 AM CDT documented in this encounter Active and Recently Administered Medications Times are shown in CDT. 04/03/2021 04/04/2021 Medication Order 04/02/2021 0757 (Given - Provider: Eliane Bejarano RN)0900 (Not Given - Provider: Eliane Bejarano RN - Reason: Given previously)2021 (Given - Provider: Trudi Bell RN) 0900 (Due)2100 (Due) heparin (porcine) 5,000 unit/mL 2127 (Given - injection 5,000 Units Provider: Trudi 5,000 Units, Subcutaneous, Every 12 HONORIO Bell) hours scheduled, First dose on Wed04/02/21 at 2115 04/03/2021 04/04/2021 Medication Order 04/02/2021 0938 (New Bag - Provider: Eliane Bejarano RN)1533 (New Bag - Provider: Eliane Bejarano RN) 0745 (Rate/Dose Verify - Provider: Constance Parker RN) sodium chloride 0.9% infusion 2128 (New Bag - 150 mL/hr, Intravenous, Continuous, Provider: Trudi Starting on Wed04/02/21 at 2115, For 48 HONORIO Bell) hours 04/03/2021 04/04/2021 Medication Order 04/02/2021 acetaminophen (TYLENOL) suppository 650 mg(Linked Group 1) 650 mg, Rectal, Every 6 hours PRN, mild pain (pain score 1-3), Starting on Wed04/02/21 at 2050, Do not exceed 4 GM/DAY of acetaminophen. If 65 or older do no t exceed 3 GM/DAY. If chronic alcoholic d o not exceed 2 GM/DAY. acetaminophen (TYLENOL) tablet 325-650 mg(Linked Group 1) 325-650 mg, Oral, Every 6 hours PRN, mild pain (pain score 1-3), fever, Starting on Wed04/02/21 at 2050, Do not exceed 4 GM/DAY of acetaminophen. If 6 5 or older do not exceed 3 GM/DAY. If chronic alcoholic do not exceed 2 GM/DAY. bisacodyL (DULCOLAX) suppository 10 mg 10 mg, Rectal, Daily PRN, constipation, Starting on Wed04/02/21 at 2050 docusate sodium (COLACE) capsule 100 mg 100 mg, Oral, 2 times daily PRN, stool softening, Starting on Wed04/02/21 at 2050, Swallow capsule whole nitroglycerin (NITROSTAT) SL tablet 0.4 mg 0.4 mg, Sublingual, Every 5 min PRN, chest pain, Starting on Wed04/02/21 at 2050, For 3 doses, May repeat every 5 minutes for a total of 3 doses. Check B P prior to each dose. Discontinue use for SBP less than 90 mmHg. Notify physicia n if given. DO NOT CRUSH OR CHEW. ondansetron (ZOFRAN) injection 4 mg(Linked Group 2) 4 mg, Intravenous, Every 6 hours PRN, nausea/vomiting (1st line), Starting on Wed04/02/21 at 2049, Administer if patient is unable to tolerate sublingua l formulation. ondansetron (ZOFRAN-ODT) disintegrating tablet 4 mg(Linked Group 2) 4 mg, Oral, Every 6 hours PRN, nausea/vomiting (1st line), Starting on Wed04/02/21 at 2049, Do not remove from blister until needed. Peel backing off the blister, do not push tablet through . For ORAL administration, using dry hands place tablet on tongue and allow to dissolve. Swallow with saliva. Fo r NG/OG administration, dissolve tablet i n small amount of water immediately upon removal from package and administer immediately via syringe through feeding tube. prochlorperazine (COMPAZINE) injection 5-10 mg(Linked Group 3) 5-10 mg, Intravenous, Every 4 hours PRN , nausea/vomiting (2nd line), Starting on Wed04/02/21 at 2050, May repeat 5 mg dos e x 1 after 30 minutes if first dose ineffective. Do not exceed a total dose of 40 mg within a 24 hour period. Rate of administration should not exceed 5 mg/minute. prochlorperazine (COMPAZINE) injection 5-10 mg(Linked Group 3) 5-10 mg, Intramuscular, Every 4 hours PRN, nausea/vomiting (2nd line), Starting on Wed04/02/21 at 2050, Administer if patient does not have IV access. May repeat 5 mg dose x 1 after 60 minutes if first dose ineffective. D o not exceed a total dose of 40 mg within a 24 hour period. promethazine (PHENERGAN) suppository 25 mg 25 mg, Rectal, Every 6 hours PRN, nausea, vomiting, nausea/vomiting (4th line), Starting on Wed04/02/21 at 2050, REFRIGERATE Order Group 1: acetaminophen (TYLENOL) tablet 325-650 mgJump to med 325-650 mg, Oral, Every 6 hours PRN, mi ld pain (pain score 1-3), fever, Starting on Wed04/02/21 at 2050
Do not exceed 4 GM/DAY of aceta minophen. If 65 or older do not exceed 3 GM/DAY. If chronic alcoholic d o not exceed 2 GM/DAY.
Or acetaminophen (TYLENOL) suppository 650 mgJump to med 650 mg, Rectal, Every 6 hours PRN, mild pain (pain score 1-3), Starting on Wed04/02/21 at 2050
Do not exceed 4 GM/DAY of acetaminophen. & nbsp;If 65 or older do not exceed 3 GM/DAY. If chronic alcoholic do not exceed 2 GM/DAY.< br> Group 2: ondansetron (ZOFRAN-ODT) disintegrating tablet 4 mgJump to med 4 mg, Oral, Every 6 hours PRN, nausea/v omiting (1st line), Starting on Wed04/02/21 at 2049
Do not remove from blister until needed. Peel backing off the blister, do not push tablet through. For ORAL administration, using dry hands pl breann tablet on tongue and allow to dissolve. Swallow with saliva. For NG/OG administration, dis solve tablet in small amount of water immediately upon removal from package and administer imm ediately via syringe through feeding tube.
Or ondansetron (ZOFRAN) injection 4 mgJump to med 4 mg, Intravenous, Every 6 hours PRN, n ausea/vomiting (1st line), Starting on Wed04/02/21 at 2049
Administer if patient is unable to tolerate sublingual formulation.
Group 3: prochlorperazine (COMPAZINE) injection 5-10 mgJump to med 5-10 mg, Intravenous, Every 4 hours PRN , nausea/vomiting (2nd line), Starting on Wed04/02/21 at 2050
May repeat 5 mg dose x 1 after 30 minutes if first dose ineffective. Do not exceed a total dose of 40 mg within a 24 hour pe riod. Rate of administration should not exceed 5 mg/minute.
Or prochlorperazine (COMPAZINE) injection 5-10 mgJump to med 5-10 mg, Intramuscular, Every 4 hours P RN, nausea/vomiting (2nd line), Starting on Wed04/02/21 at 2050
Administer if patient does not have IV access. May repeat 5 mg dose x 1 after 60 minutes if first dose ineffective.&nbsp ;Do not exceed a total dose of 40 mg within a 24 hour period.
documented in this encounter Additional Health Concerns Last Indicated Resolved Time Infection Onset Date 04/02/2021 04/02/2021 10:24 PM CDT COVID-19 PUI 04/02/2021 documented as of this encounter
== END 2021-04-01 12:14 | disposition home or self-care (01) ==
LOC: ER FS 10:49
DX: T67.3XXA Heat exhaustion, anhydrotic, initial encounter (principal)
CPT/HCPCS: 36415; 80053; 82550; 85007; 85027